=== PATIENT | male | born 1985 | race Two or more races ===

== ENCOUNTER 2018-08-25 17:44 | Emergency (ER) | payer OTHER, BC ==
[2018-08-25] MEDS ORDERED: KETOROLAC TROMETHAMINE 60 MG/2 ML SDV IM ONE (19:48)
[2018-08-25] MEDS ORDERED: OXYCODONE-ACETAMINOPHEN 5-325 MG TABLET PO ONE (19:49)
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
[2018-08-25 22:31] VITALS: BP 127/79
== END 2018-08-25 22:32 | disposition home or self-care (01) ==
LOC: ER 17:44
DX: S29.019A Strain of muscle and tendon of unspecified wall of thorax, initial encounter (principal); S39.012A Strain of muscle, fascia and tendon of lower back, initial encounter; S20.219A Contusion of unspecified front wall of thorax, initial encounter; S16.1XXA Strain of muscle, fascia and tendon at neck level, initial encounter; V43.52XA Car driver injured in collision with other type car in traffic accident, initial encounter
CPT/HCPCS: 99283; 96372; 72040; 72110; 72070; J1885